=== PATIENT | female | born 1995 | race Caucasian/White ===

== ENCOUNTER 2021-05-27 16:09 | Emergency (ER) | payer OTHER ==
[2021-05-27] MEDS ORDERED: IBUPROFEN800 MG PO (16:42)
[2021-05-27] MEDS ORDERED: MUCINEX D ER 11 EACH PO (16:42)
== END 2021-05-27 19:05 | disposition home or self-care (01) ==
LOC: ER1 16:09
DX: U07.1 COVID-19 (principal); I25.2 Old myocardial infarction
CPT/HCPCS: 0240U; 71045; 99284